=== PATIENT | male | born 2000 ===

== ENCOUNTER 2022-01-07 21:37 | Emergency (ER) | payer SELFPAY ==
[2022-01-08 03:03] VITALS: BP 126/90
[2022-01-08 09:12] LABS: Hematocrit 55.8 % (35.5-45.6); Hemoglobin 18.4 gm/dl (11.8-15.2); Mean Corpuscular HGB Conc 33 % (32-34); Mean Corpuscular Volume 86 fl (84-94); Red Blood Count 6.47 M/mm3 (3.65-5.03); Red Cell Distribution Width 13.3 % (13.2-15.2)
[2022-01-08 09:14] LABS: Platelet Count 322 K/mm3 (140-440)
[2022-01-08] MEDS ORDERED: SODIUM CHLORIDE 0.9% 1000 ML 1,000 ML IV ONE ×2 (09:55→11:23)
[2022-01-08 09:59] LABS: Hyaline Casts,Urine 27 /LPF; Mucus,Urine FEW /HPF
[2022-01-08 10:05] LABS: Albumin 6.6 g/dL (3.9-5)
[2022-01-08 10:11] LABS: Color,Urine Yellow (Yellow)
--- NOTE | 2022-01-08 10:45 | Emergency Department Report ---
<ABRAHAN BOSCH A - Last Filed: 01/08/22 14:24> ED Abdominal Pain HPI - General Chief Complaint: Nausea/Vomiting/Diarrhea Stated Complaint: BODY CRAMPS,VOMITING,NAUSEA PUI?: No Time Seen by Provider: 01/08/22 09:05 Source: patient Mode of arrival: Ambulatory Limitations: No Limitations - History of Present Illness Initial Comments: 21 YO COMES TO ER WITH BODY ACHES/SUNBURN/ WEAKNESS WORKS OUTSIDE IN [employer] NO N/V IN ER REPORTS NV PRIOR TO ARRIVAL IN ER NO FEVER OR CHILLS AMBULATORY TO FAST TRACK -: Gradual, hour(s) Quality: cramping Consistency: constant Improves With: nothing Worsens With: nothing Associated Symptoms: denies other symptoms, nausea. denies: vomiting, diarrhea, fever, chills, constipation, dysuria, hematemesis, hematochezia, melena, hematuria, anorexia, syncope - Related Data Allergies Allergy/AdvReac Type Severity Reaction Status Date / Time No Known Allergies Allergy Verified 01/07/22 22:05 ED Review of Systems Comment: All other systems reviewed and negative ED Past Medical Hx - Past Medical History Previous Medical History?: No - Surgical History Past Surgical History?: No - Family History Family history: no significant - Social History Smoking Status: Unknown if ever smoked Substance Use Type: None ED Physical Exam - General Limitations: No Limitations General appearance: alert, in no apparent distress - Head Head exam: Present: atraumatic, normocephalic - Eye Eye exam: Present: normal appearance - ENT ENT exam: Present: mucous membranes moist - Neck Neck exam: Present: normal inspection - Respiratory Respiratory exam: Present: normal lung sounds bilaterally. Absent: respiratory distress - Cardiovascular Cardiovascular Exam: Present: regular rate, normal rhythm. Absent: systolic murmur, diastolic murmur, rubs, gallop - GI/Abdominal GI/Abdominal exam: Present: soft, normal bowel sounds - Rectal Rectal exam: Present: deferred - Extremities Exam Extremities exam: Present: normal inspection - Back Exam Back exam: Present: normal inspection - Neurological Exam Neurological exam: Present: alert, oriented X3 - Psychiatric Psychiatric exam: Present: normal affect, normal mood - Skin Skin exam: Present: warm, dry, intact, normal color. Absent: rash ED Medical Decision Making - Lab Data Result diagrams: 01/08/22 13:14 01/08/22 13:14 - Medical Decision Making Labs 01/08/22 01/08/22 01/08/22 08:23 08:23 08:23 WBC 11.8 H RBC 6.47 H Hgb 18.4 H Hct 55.8 H MCV 86 MCH 29 MCHC 33 RDW 13.3 Plt Count 322 Sodium 144 Potassium 3.9 Chloride 91.8 L Carbon Dioxide 26 Anion Gap 30 BUN 29 H Creatinine 2.1 H Estimated GFR 40 BUN/Creatinine Ratio 14 Glucose 128 H Calcium 11.0 H Total Bilirubin 0.50 AST 27 ALT 29 Alkaline Phosphatase 95 Total Creatine Kinase 345 H Total Protein 9.4 H Albumin 6.6 H Albumin/Globulin Ratio 2.4 Lipase 44 Urine Color Urine Turbidity Specific [place] (Man) Ur Protein (Man) Ur Ketones (Man) Ur Nitrite (Man) Ur Reducing Substances Urine Bilirubin (Man) Urine Ictotest Leukocyte Esterase (Man) Urine WBC (Auto) Urine RBC (Auto) U Epithel Cells (Auto) Urine RBC (Manual) Hyaline Casts Urine Mucus 01/08/22 01/08/22 01/08/22 09:17 13:14 13:14 WBC 10.0 RBC 5.38 H Hgb 15.6 H Hct 46.4 H D MCV 86 MCH 29 MCHC 34 RDW 13.3 Plt Count 245 Sodium 140 Potassium 3.5 L Chloride 99.3 Carbon Dioxide 26 Anion Gap 18 BUN 26 H Creatinine 1.2 Estimated GFR > 60 BUN/Creatinine Ratio 22 Glucose 100 Calcium 8.3 L D Total Bilirubin AST ALT Alkaline Phosphatase Total Creatine Kinase Total Protein Albumin Albumin/Globulin Ratio Lipase Urine Color Yellow Urine Turbidity Slightly cloudy Specific [place] (Man) 1.015 Ur Protein (Man) 1+ Ur Ketones (Man) Negative Ur Nitrite (Man) Negative Ur Reducing Substances Not Reportable Urine Bilirubin (Man) Negative Urine Ictotest Not Reportable Leukocyte Esterase (Man) Trace Urine WBC (Auto) 7.0 H Urine RBC (Auto) 1.0 U Epithel Cells (Auto) 1.0 Urine RBC (Manual) Negative Hyaline Casts 27 Urine Mucus Few Vital Signs 01/07/22 01/08/22 22:04 03:01 Temperature 97.6 F 97.3 F L Pulse Rate 107 H 87 Respiratory 16 18 Rate Blood Pressure 137/88 126/90 O2 Sat by Pulse 93 98 Oximetry LABS NOTED 2L NS LABS REPEATED MINDA TRENDING DOWN PT EDUCATED ON PROPER HYDRATION WHEN OUTSIDE ON DC EXAM PT TAKING PO AND NAD PT DC HOME WITH DC PLAN OF CARE INCLUDING DIET , MEDS, ACTIVITY AND FOLLOW UP HE VERBALIZES UNDERSTANDING OF PLAN OF CARE - Differential Diagnosis ro rhabdo ED Disposition Clinical Impression: MINDA (acute kidney injury) Rhabdomyolysis Qualifiers: Rhabdomyolysis type: non-traumatic Qualified Code(s): M62.82 - Rhabdomyolysis Disposition: 01 HOME / SELF CARE / HOMELESS Is pt being admited?: No Does the pt Need Aspirin: No Condition: Stable Instructions: Rhabdomyolysis Additional Instructions: DRINK A LOT OF WATER FOLLOW UP WITH PCP NEXT WEEK TO GET LABS RECHECKED REFERRAL BELOW Referrals: ABHINAV ROE MD [Staff Physician] - 3-5 Days Forms: Work/School Release Form(ED) Time of Disposition: 14:14 <VITALIY BUSTILLOS - Last Filed: 01/09/22 17:50> ED Review of Systems ROS: Stated complaint: BODY CRAMPS,VOMITING,NAUSEA Other details as noted in HPI ED Course Vital Signs 01/07/22 01/08/22 01/08/22 22:04 03:01 15:15 Temperature 97.6 F 97.3 F L Pulse Rate 107 H 87 87 Respiratory 16 18 18 Rate Blood Pressure 137/88 126/90 Blood Pressure 126/90 [Right] O2 Sat by Pulse 93 98 98 Oximetry ED Medical Decision Making - Lab Data Result diagrams: 01/08/22 13:14 01/08/22 13:14 - Medical Decision Making chart reviewed. Creatine improved with IVF Dehydration likely cause of MINDA. Pt has very mild ck elevation without significant rhabdomyolysis Critical care attestation.: If time is entered above; I have spent that time in minutes in the direct care of this critically ill patient, excluding procedure time.
[2022-01-08 13:30] LABS: Hematocrit 46.4 % (35.5-45.6); Hemoglobin 15.6 gm/dl (11.8-15.2); Mean Corpuscular HGB Conc 34 % (32-34); Mean Corpuscular Volume 86 fl (84-94); Platelet Count 245 K/mm3 (140-440); Red Blood Count 5.38 M/mm3 (3.65-5.03); Red Cell Distribution Width 13.3 % (13.2-15.2)
[2022-01-08 13:44] LABS: BUN/Creatinine Ratio 22; Blood Urea Nitrogen 26 mg/dL (9-20); Calcium 8.3 mg/dL (8.4-10.2); Hemolysis Index 7
== END 2022-01-08 15:15 | disposition home or self-care (01) ==
LOC: ED 21:37
DX: N17.8 Other acute kidney failure (principal); M62.82 Rhabdomyolysis
CPT/HCPCS: 36415; 80048; 80053; 81001; 82550; 83690; 85027; 96360; 96361; 99283; J7030